=== PATIENT | female | born 1950 | race Caucasian/White ===

== ENCOUNTER 2017-06-08 13:08 | Emergency (ER) | payer MEDICARE, OTHER ==
[2017-06-08 13:29] VITALS: BP 142/90
[2017-06-08] MEDS ORDERED: Ibuprofen TAB* 600 MG PO ONE (13:33)
--- NOTE | 2017-06-08 13:41 | UC ---
Skin Complaint HPI - HPI Summary HPI Summary: Pt presents with a cat scratch to her left hand. She tells me that last night she was holding her cat and another one of her cats came up to them - the one cat scratched at the other and ended up scratching pt's left dorsal hand. She is here today with pain and swelling of the area. Denies fever, chills, numbness , tingling, previous injury, SOB, or chest pain. She has not taken anything for the pain. - History of Current Complaint Chief Complaint: UCBiteInjury Time Seen by Provider: 06/08/17 13:40 Stated Complaint: PUNCTURE WOUND Hx Obtained From: Patient Hx Last Menstrual Period: post menopause Onset/Duration: Sudden Onset Skin Exposure Onset/Duration: Hours Ago Onset Severity: Mild Current Severity: Moderate Pain Intensity: 8 Pain Scale Used: 0-10 Numeric Location: Discrete Character: Swelling, Pain Aggravating Factor(s): Touch, Other - Movement Alleviating Factor(s): Cold Compresses - Allergy/Home Medications Allergies/Adverse Reactions: Allergies Allergy/AdvReac Type Severity Reaction Status Date / Time No Known Allergies Allergy Verified 06/08/17 13:29 Home Medications: Home Medications DULoxetine DR CAP* [Cymbalta CAP*] 120 mg PO DAILY 06/08/17 [History Confirmed 06/08/17] Desipramine TAB* [Norpramin TAB*] 300 mg PO BEDTIME 06/08/17 [History Confirmed 06/08/17] Review of Systems Constitutional: Negative Skin: Other - 3 cat scratches to left hand Respiratory: Negative Cardiovascular: Negative Musculoskeletal: Edema - Left hand Neurological: Negative Psychological: Negative All Other Systems Reviewed And Are Negative: Yes PMH/Surg Hx/FS Hx/Imm Hx Previously Healthy: Yes Psychological History: Anxiety - Surgical History Surgical History: None - Social History Occupation: Retired Lives: Alone Alcohol Use: Daily Substance Use Type: None Smoking Status (MU): Never Smoked Tobacco Physical Exam Triage Information Reviewed: Yes Appearance: Well-Appearing, Well-Nourished, Other: - Pt is very anxious. Vital Signs: Initial Vital Signs Temp 98.7 F 06/08/17 13:23 Pulse 117 06/08/17 13:23 Resp 98 06/08/17 13:23 BP 142/90 06/08/17 13:23 Pulse Ox 100 06/08/17 13:23 Vital Signs Reviewed: Yes Neck: Positive: Supple, Nontender, No Lymphadenopathy Respiratory: Positive: Chest non-tender, Lungs clear, Normal breath sounds, No respiratory distress, No accessory muscle use Cardiovascular: Positive: RRR, No Murmur, Pulses Normal, Brisk Capillary Refill Musculoskeletal: Positive: Strength Limited @ - Left hand/wrist due to pain, ROM Limited @ - Left hand/wrist due to pain, Edema @ - Left dorsal hand - mild. , Other: - TTP over dorsal aspect of left hand along the 2nd metacarpal superficially surrounding the cat scratch. Neurological: Positive: Alert, Other: - Sensations intact left hand and all digits. Psychological: Positive: Age Appropriate Behavior Skin: Positive: Other - There are four <2mm superficial scratches that are consistent with cat scratches on the dorsal surface of the left hand. Mild erythema surrounding each one. Mild edema in this area. No streaking, drainage, bleeding, or ecchymosis. Course/Dx - Course Course Of Treatment: Cat scratch with superficial cellulitis. According to [employer], the most common pathogen is Bartonella henselae and the indicated antibiotic is Azithromycin. Will treat with zpak and have her monitor for increased symptoms. - Differential Diagnoses - Skin Complaint Differential Diagnoses: Cellulitis, Foreign Body, Other - Cat scrtach - Diagnoses Provider Diagnoses: Cat scratch with cellulitis left hand Discharge - Discharge Plan Condition: Stable Disposition: HOME Prescriptions: Azithromycin TAB* [Zithromax TAB (Z-ESME) 250 mg #6 tabs] 2 tab PO .TODAY, THEN 1 DAILY #1 esme Patient Education Materials: Cat Scratch Disease (ED) Referrals: Hayley Urban NP [Primary Care Provider] - Additional Instructions: If you develop a fever, SOB, chest pain, new or worsening symptoms - please call your PCP or go to the ED. Your blood pressure was high at todays visit. Please see your primary provider within 4 weeks for recheck and re-evaluation. 1) Ice and elevate the hand to reduce swelling and pain. 2) May take OTC ibuprofen 400mg every 6 hours as needed for pain. 3) Monitor the area for an increasing redness, swelling, pain, or discharge. If you develop any of these symptoms, please go to the ER.
== END 2017-06-08 14:06 | disposition home or self-care (01) ==
LOC: UCEAST 13:08
DX: S60.512A Abrasion of left hand, initial encounter (principal); L03.114 Cellulitis of left upper limb; W55.03XA Scratched by cat, initial encounter; Y92.9 Unspecified place or not applicable; F41.9 Anxiety disorder, unspecified
CPT/HCPCS: 99211; A9270-GY; G0463

== ENCOUNTER 2019-02-26 09:20 | Emergency (ER) | payer MEDICARE, OTHER ==
[2019-02-26 09:27] VITALS: BP 144/98
--- NOTE | 2019-02-26 09:28 | UC ---
Skin Complaint HPI - HPI Summary HPI Summary: 68 yo female presents with painful rash to right mid/lower back. She tells me that for the last past 3-4 days she has had a mild intermittent headache and fatigue. Yesterday noticed some pain in her right flank with a slight redness. Today had increased pain and noticed blistering to the area. She has not taken anything OTC for her symptoms. She has not had a shingles vaccination. Denies fever, chills, SOB, chest pain, abdominal pain, n/v - History of Current Complaint Chief Complaint: UCSkin Time Seen by Provider: 02/26/19 09:25 Stated Complaint: SOFT TISSUE Hx Obtained From: Patient Hx Last Menstrual Period: post menopause Onset/Duration: Gradual Onset Onset Severity: Mild Current Severity: Moderate Pain Intensity: 7 Pain Scale Used: 0-10 Numeric - Allergy/Home Medications Allergies/Adverse Reactions: Allergies Allergy/AdvReac Type Severity Reaction Status Date / Time No Known Allergies Allergy Verified 02/26/19 09:28 Home Medications: Home Medications Atorvastatin* [Lipitor 10 MG*] 1 tab PO DAILY 02/26/19 [History Confirmed ] Hendley Carbonate [Hendley Carbonate 300 mg cap] 2 addv.vial PO DAILY 02/26/19 [ History Confirmed 02/26/19] PMH/Surg Hx/FS Hx/Imm Hx Endocrine History: Dyslipidemia Psychological History: Depression, Bipolar Disorder - Surgical History Surgical History: None - Family History Known Family History: Positive: Non-Contributory - Social History Lives: With Family Alcohol Use: Occasionally Substance Use Type: None Smoking Status (MU): Never Smoked Tobacco Review of Systems All Other Systems Reviewed And Are Negative: No Constitutional: Positive: Negative Skin: Positive: Rash Eyes: Positive: Negative ENT: Positive: Negative Respiratory: Positive: Negative Cardiovascular: Positive: Negative Gastrointestinal: Positive: Negative Musculoskeletal: Positive: Negative Neurological: Positive: Negative Psychological: Positive: Negative Physical Exam - Summary Physical Exam Summary: GENERAL: NAD. WDWN. No pain distress. SKIN: RIGHT FLANK: 5.0cm horizontal oval shaped area with erythema and scattered 1-2mm blisters that are TTP. Do not cross midline. No open wound or drainage. No induration or abscess appreciated NECK: Supple. Nontender. No lymphadenopathy. CHEST: No accessory muscle use. Breathing comfortably and in no distress. CV: Pulses intact. Cap refill <2seconds NEURO: Alert. PSYCH: Age appropriate behavior. Triage Information Reviewed: Yes Vital Signs: Initial Vital Signs Temp 98.2 F 02/26/19 09:24 Pulse 100 02/26/19 09:24 Resp 18 02/26/19 09:24 BP 144/98 02/26/19 09:24 Pulse Ox 100 02/26/19 09:24 Vital Signs Reviewed: Yes Course/Dx - Course Course Of Treatment: Suspect shingles of L2/L3 right side. Will start her with valacyclovir and have her keep the area covered until well healed. Recommend f/u with PCP to get shingles vaccination when this has resolved. - Diagnoses Provider Diagnosis: Shingles Discharge ED - Sign-Out/Discharge Documenting (check all that apply): Patient Departure All imaging exams completed and their final reports reviewed: No Studies - Discharge Plan Condition: Stable Disposition: HOME Prescriptions: ValACYclovir (*) [Valtrex 1 GM(*)] 1 gm PO TID #21 tab Patient Education Materials: Shingles (ED), Shingles Vaccine (ED) Referrals: Hayley Urban TOUR DIRECTOR [Primary Care Provider] - Additional Instructions: If you develop a fever, shortness of breath, chest pain, new or worsening symptoms - please call your PCP or go to the ED immediately. Your blood pressure was high at todays visit. Please see your primary provider within 4 weeks for recheck and re-evaluation. Keep the area covered until well healed changing the bandage daily (likely 7-10 days) - Billing Disposition and Condition Condition: STABLE Disposition: Home - Attestation Statements Provider Attestation: I was available for consult. This patient was seen by the CARLOS. The patient was not presented to, seen by, or examined by me. -Ramiro
== END 2019-02-26 09:45 | disposition home or self-care (01) ==
LOC: UCEAST 09:20
DX: B02.9 Zoster without complications (principal); E78.5 Hyperlipidemia, unspecified; F31.9 Bipolar disorder, unspecified
CPT/HCPCS: 99212; G0463